=== PATIENT | male | born 1990 | race Caucasian/White ===

== ENCOUNTER 2020-01-23 19:45 | Emergency (ER) | payer OTHER ==
[~2020-01-23] VITALS: Ht 185.4 cm; Wt 68.0 kg
[2020-01-23 21:12] LABS: ABSOLUTE NEUTROPHILS 3.2 thou/uL (1.4-8.2); BASOPHILS 0.6 % (0.0-2.0); EOSINOPHILS 0.1 % (0.0-3.0); HEMATOCRIT 39.8 % (42.0-52.0); HEMOGLOBIN 13.3 gm/dL (14.0-18.0); LYMPHOCYTES 34.9 % (24.0-44.0); MCH 29.8 pg (26.0-34.0); MCHC 33.3 g/dL (28.0-37.0); MCV 89.3 fL (80.0-100.0); MONOCYTES 9.5 % (1.0-8.0); PLATELET COUNT 178 thou/uL (150-400); POLYS 54.9 % (36.0-66.0); RBC 4.46 mil/uL (4.50-6.00); RDW 14.8 % (10.5-14.5); WBC 5.8 thou/uL (4.0-11.0)
[2020-01-23 21:22] LABS: AMP/METHAMP Negative (Negative); BARBITURATES Negative (Negative); BENZODIAZEPINES Negative (Negative); COCAINE Negative (Negative); METHADONE Negative (Negative); OPIATES Negative (Negative); PCP Negative (Negative)
[2020-01-23 21:23] LABS: CALCIUM 8.6 mg/dL (8.5-10.1); CREATININE 0.9 mg/dL (0.7-1.3); POTASSIUM 3.8 mmol/L (3.5-5.1)
[2020-01-23 21:26] VITALS: BP 139/79
== END 2020-01-23 21:31 | disposition left against medical advice (07) ==
LOC: ER 19:45
PROVIDERS: Emergency Medicine
DX: R41.82 Altered mental status, unspecified (principal); R42 Dizziness and giddiness

== ENCOUNTER 2020-01-24 05:32 | Emergency (ER) | payer OTHER ==
[~2020-01-24] VITALS: Ht 188 cm; Wt 70.3 kg
--- NOTE | ~2020-01-24 | EMS ---
[facility] [address] [place] [address] EMS Patient Care Report Name: CAROLINE BACH Room #: REG CARMINE [place]#: [id number] Admission: 01/24/20 Attend Phys: Discharge: Date of : [birth year] Report #: [id number] THIS REPORT FOR: //name// Report Transmitted: 01/24/2020 07:24 EMS Care Summary [facility] Incident [id number] @ 01/24/2020 04:53 [place] [address] Patient CAROLINE BACH Male, 29 Years 1990 Patient Address [address] [place] [id number] Patient History Hepatitis C (Without Hepatic Coma),Human Immunodeficiency Virus Disease (HIV/AIDS), Patient Allergies No known allergies, Patient Medications None Reported, Chief Complaint Strange behavior Disposition Transported No Lights/[place] Dispatch Reason Sick Person Transported To [facility] Narrative Pt found sitting in the back of a [employer] squad car. [employer] states "We were called for a part dancing in the street and admitted to taking ecstasy and acid." Pt admitted to ems that he taken acid and ecstasy. Pt had mild euphoric [facility] [address] [place] [address] EMS Patient Care Report Name: CAROLINE BACH Room #: REG ER Claudine.#: [id number] Admission: 01/24/20 Attend Phys: Discharge: Date of : [birth year] Report #: [id number] behavior and agreed to go to ER for evaluation. Pt was assisted to ambulance without incident. EMS alerted hospital on magnetic[employer]io system fire suppression captain delivered pt to er without change. EMS gave report to receiving RN transferring pt and care to hospital staff. Initial Vitals @05:32P: 92,R: 92,BP: 144/84,Pain: 0/10,GCS: 15,SpO2: 98,Revised Trauma: 11, Assessments @05:33MENTAL:Person Oriented,Time Oriented,Place Oriented,Event Oriented,SKIN:HEENT:Eyes: Left Pupil: 3-mm,Eyes: Right Pupil: 3-mm,Neck/Airway: No Abnormalities,LUNG SOUNDS:General: No Abnormalities,ABDOMEN:General: No Abnormalities,PELVIS//GI:No Abnormalities,EXTREMITIES:Left Arm: No Abnormalities,Right Arm: No Abnormalities,Left Leg: No Abnormalities,Right Leg: No Abnormalities,PULSE:Radial: 2+ Normal,NEURO:No Abnormalities, Impression Behavioral/psychiatric episode Timeline 04:52,Call Received 04:52,Psap Call 04:53,Dispatched 04:55,En Route 05:06,On Scene 05:07,At Patient 05:20,Depart Scene 05:28,At Destination 05:32,BP: 144/84 M,PULSE: 92,RR: 92 R,SPO2: 98 Ox,ETCO2: ,BG: ,PAIN: 0,GCS: 15, 05:37,Call Closed Disclaimer v1.1 Copyright 2020 [employer] This EMS Care Summary contains data elements from the applicable legal record (which may be displayed differently). It is designed to provide pertinent information for the following purposes: continuity of care, clinical quality, and state data reporting. The complete legal record is available to ED staff and administrators of the receiving hospital in [facility]'s Patient Tracker. All data is provided "as is."
[2020-01-26 16:12] LABS: HEMATOCRIT 43.8 % (42.0-52.0); MCH 30.5 pg (26.0-34.0); MCHC 34.2 g/dL (28.0-37.0); MCV 89.1 fL (80.0-100.0); RBC 4.92 mil/uL (4.50-6.00); RDW 14.9 % (10.5-14.5); WBC 6.5 thou/uL (4.0-11.0)
[2020-01-26 16:33] LABS: CREATININE 0.9 mg/dL (0.7-1.3); POTASSIUM 4.1 mmol/L (3.5-5.1)
[2020-01-26 16:38] LABS: ALBUMIN 4.2 g/dL (3.4-5.0); TOTAL BILIRUBIN 0.4 mg/dL (0.2-1.0); TOTAL PROTEIN 8.3 g/dL (6.4-8.2)
--- NOTE | 2020-01-29 10:33 | NUR ---
THIS LABORER LANDSCAPE WAS MAKING ROUNDS IN E.D. DOCTOR SUGGESTED THE PT. MIGHT LIKE A VISIT HE HAS BEEN WAITING HERE FOR A WHILE. THIS LABORER LANDSCAPE MET THE PT. AND DID SOME LIFE REVIEW. WE CONCLUDED IN PRAYER.
[2020-01-30 08:55] VITALS: BP 137/92
== END 2020-01-30 08:55 ==
LOC: ER 05:32
PROVIDERS: Emergency Medicine
DX: F29 Unspecified psychosis not due to a substance or known physiological condition (principal); R41.82 Altered mental status, unspecified; R45.851 Suicidal ideations; Z20.828 Contact with and (suspected) exposure to other viral communicable diseases

== ENCOUNTER 2020-02-14 09:12 | Emergency (ER) | payer OTHER ==
[~2020-02-14] VITALS: Ht 182.9 cm; Wt 71.2 kg
[2020-02-14] MEDS ORDERED: BIKTARVY 50-201 EACH PO (12:01)
[2020-02-14] MEDS ORDERED: DOXYCYCLINE 10100 MG PO (12:01)
[2020-02-14 12:29] VITALS: BP 114/85
== END 2020-02-14 12:31 | disposition home or self-care (01) ==
LOC: ER 09:12
DX: L02.01 Cutaneous abscess of face (principal); B20 Human immunodeficiency virus [HIV] disease; Z76.0 Encounter for issue of repeat prescription

== ENCOUNTER 2020-02-16 15:20 | Emergency (ER) | payer OTHER ==
[~2020-02-16] VITALS: Ht 185.4 cm; Wt 71.4 kg
[~2020-02-16 15:20] MED LIST: BIKTARVY 50-201 EACH PO; DOXYCYCLINE 10100 MG PO
[2020-02-16 15:24] VITALS: BP 126/84
[2020-02-16] MEDS ORDERED: CEPHALEXIN 250250 M1 PO (15:31)
== END 2020-02-16 16:26 | disposition home or self-care (01) ==
LOC: ER 15:20
DX: R07.81 Pleurodynia (principal); B20 Human immunodeficiency virus [HIV] disease; F17.210 Nicotine dependence, cigarettes, uncomplicated; Z79.899 Other long term (current) drug therapy; Z76.0 Encounter for issue of repeat prescription